=== PATIENT | female | born 1935 | race Caucasian/White ===

== ENCOUNTER 2018-02-07 08:14 | Inpatient (IN) | payer MEDICARE, OTHER ==
[~2018-02-07] VITALS: Ht 165.1 cm; Wt 83.8 kg
[2018-02-07 08:42] LABS: BASOPHILS % (AUTO) 0.2 % (0-1); EOSINOPHILS % (AUTO) 0.2 % (0-6); HEMATOCRIT 42.1 % (35.0-45.0); HEMOGLOBIN 14.5 g/dl (12.0-16.0); LYMPHOCYTES # (AUTO) 0.7 X10'3 (1.1-4.8); LYMPHOCYTES % (AUTO) 4.6 % (21-51); MEAN CORPUSCULAR HEMOGLOBIN 31.8 PG (27.0-31.0); MEAN CORPUSCULAR HGB CONC 34.5 % (33.0-36.5); MEAN CORPUSCULAR VOLUME 92.3 FL (78-98); MONOCYTES # (AUTO) 0.6 X10'3 (0-0.9); NEUTROPHILS # (AUTO) 14.6 X10'3 (1.8-7.7); PLATELET COUNT 246 X10'3 (140-440); RED BLOOD COUNT 4.56 X10'6 (4.20-5.60); RED CELL DISTRIBUTION WIDTH 14.5 % (11.5-14.5)
[2018-02-07 08:46] LABS: CLARITY,URINE CLOUDY (Clear); COLOR,URINE YELLOW (Yellow); GLUCOSE, URINE NEGATIVE (Neg); KETONES,URINE NEGATIVE (Neg); LEUKOCYTE ESTERASE ,URINE TRACE (Neg); NITRITES, URINE POSITIVE (Neg); OCCULT BLOOD,URINE TRACE-INTACT (Neg); PROTEIN,URINE NEGATIVE (Neg); UROBILINOGEN,URINE 0.2 E.U/dL (0.2-1.0)
[2018-02-07 08:51] LABS: UA COLLECTION TYPE CLN CATCH MIDSTREAM
[2018-02-07 08:54] LABS: BACTERIA,URINE 4+ /HPF (Neg); MUCUS STRANDS FEW /LPF (Neg); RBC,URINE 0-2 /HPF (0-2); SQUAMOUS EPITHELIAL CELL,UR MANY /LPF (FEW)
[2018-02-07] MEDS ORDERED: pantoprazole 40 MG vial IV ONE (08:55)
[2018-02-07] MEDS ORDERED: ondansetron/PF 4mg/2ml inj IV ONE (08:55)
[2018-02-07] MEDS ORDERED: normal saline 1000ML IV soln IVB ONE (08:55)
[2018-02-07 08:59] LABS: PROTHROMBIN TIME 10.7 SECONDS (9.0-12.0)
[2018-02-07 09:20] LABS: ALANINE AMINOTRANSFERASE 20 U/L (12-78); ALBUMIN 3.4 G/DL (3.4-5.0); ALBUMIN/GLOBULIN RATIO 0.9 (1.1-1.5); ALKALINE PHOSPHATASE 63 IU/L (46-116); ANION GAP 9 (8-16); ASPARTATE AMINO TRANSFERASE 16 U/L (10-37); BILIRUBIN,TOTAL 0.9 MG/DL (0.1-1.0); BLOOD UREA NITROGEN 26 MG/DL (7-18); BUN/CREATININE RATIO 26.5 (6.6-38.0); CHLORIDE 103 MMOL/L (99-107); CREATININE 0.98 MG/DL (0.40-0.90); GLUCOSE 150 MG/DL (70-104); LIPASE 60 U/L (73-393); POTASSIUM 3.9 MMOL/L (3.5-5.1); SODIUM 138 MMOL/L (135-145); TOTAL CARBON DIOXIDE 26.2 MMOL/L (24-32); eGFR 54 ML/MIN
[2018-02-07] MEDS ORDERED: iohexol 300mg/ml 100ml inj. ONE (09:25)
[2018-02-07 09:57] LABS: CLARITY,URINE SLIGHTLY CLOUDY (Clear); COLOR,URINE YELLOW (Yellow); GLUCOSE, URINE NEGATIVE (Neg); KETONES,URINE TRACE mg/dl (Neg); LEUKOCYTE ESTERASE ,URINE NEGATIVE (Neg); NITRITES, URINE POSITIVE (Neg); OCCULT BLOOD,URINE NEGATIVE (Neg); PROTEIN,URINE NEGATIVE (Neg); UROBILINOGEN,URINE 0.2 E.U/dL (0.2-1.0)
[2018-02-07 10:02] LABS: UA COLLECTION TYPE STRAIGHT CATH
[2018-02-07 10:03] LABS: BACTERIA,URINE 4+ /HPF (Neg); MUCUS STRANDS FEW /LPF (Neg); RBC,URINE 0-2 /HPF (0-2); SQUAMOUS EPITHELIAL CELL,UR FEW /LPF (FEW)
[2018-02-07] MEDS ORDERED: acetaminophen 325mg tablet PO ONE (11:40)
[2018-02-07] MEDS ORDERED: piperacillin/tazo 3.375gm/50ml 50 ML IV ONE (12:10)
[2018-02-07] MEDS ORDERED: NO HOME MEDS (12:30)
[2018-02-07] MEDS ORDERED: normal saline 1000ml 1,000 ML IV SCH (13:15)
[2018-02-07] MEDS ORDERED: ondansetron/PF 4mg/2ml inj IV PRN (13:15)
[2018-02-07] MEDS ORDERED: diphenhydrAMINE 50 mg/ml inj IV PRN (13:15)
[2018-02-07] MEDS ORDERED: HYDROmorphone inj. 0.5 MG/0.5 ML DISP.SYRIN IV PRN ×2 (13:15)
[2018-02-07] MEDS ORDERED: HYDROcodone/acetaminophen 5mg/325mg tablet PO PRN (13:15)
[2018-02-07] MEDS ORDERED: diphenhydrAMINE 25mg capsule PO PRN (13:15)
[2018-02-07] MEDS ORDERED: morphine 4 MG/ML inj SYRINge IV PRN ×2 (13:15)
[2018-02-07] MEDS ORDERED: acetaminophen 650mg rectal suppository RC PRN (13:15)
[2018-02-07] MEDS ORDERED: metoclopramide 5 mg/ml inj IV PRN (13:15)
[2018-02-07] MEDS ORDERED: magnesium hydroxide 30ml (MOM) UD suspension PO PRN (13:15)
[2018-02-07] MEDS ORDERED: acetaminophen 325mg tablet PO PRN ×2 (13:15)
[2018-02-07] MEDS ORDERED: mag hydrox/Alum hydrox/simeth 30ml oral suspension PO PRN (13:15)
[2018-02-07] MEDS ORDERED: CefTRIAXone/D5W-Rocephin 1gm 50 ML IV SCH (13:25)
[2018-02-07] MEDS: normal saline 1000ml 1,000 ML IV SCH (13:45)
[2018-02-07 14:00] LABS: INR 1.1 INR; PARTIAL THROMBOPLASTIN TIME 27 SECONDS (22-32); PROTHROMBIN TIME 11.4 SECONDS (9.0-12.0)
[2018-02-07 14:06] LABS: HEMOGLOBIN A1C 5.6 % (4.5-6.2)
[2018-02-07 14:38] LABS: MAGNESIUM 1.6 MG/DL (1.5-2.4)
[2018-02-07] MEDS: pantoprazole 40 MG vial IV SCH (15:35)
[2018-02-07] MEDS: cefTRIAXone 1g/NS 100ml IVPB 100 ML IV SCH (15:41)
[2018-02-07] MEDS: magnesium oxide 400mg tablet PO SCH (16:00)
[2018-02-07 16:07] VITALS: BP 130/66
[2018-02-07] MEDS: docusate sod 100mg capsule PO SCH (16:17)
[2018-02-07 19:30] VITALS: BP 139/64
[2018-02-07 20:03] LABS: OCCULT BLOOD STOOL POSITIVE (Neg)
[2018-02-07] MEDS ORDERED: temazepam 15mg capsule PO PRN (21:00)
[2018-02-08] VITALS: BP 148/66
[2018-02-08] MEDS: normal saline 1000ml 1,000 ML IV SCH ×3 (00:36→19:25)
[2018-02-08 05:43] LABS: BASOPHILS % (AUTO) 0.2 % (0-1); EOSINOPHILS # (AUTO) 0.1 X10'3 (0-0.9); EOSINOPHILS % (AUTO) 0.7 % (0-6); HEMATOCRIT 37.9 % (35.0-45.0); HEMOGLOBIN 12.8 g/dl (12.0-16.0); LYMPHOCYTES # (AUTO) 1.2 X10'3 (1.1-4.8); MEAN CORPUSCULAR HEMOGLOBIN 31.5 PG (27.0-31.0); MEAN CORPUSCULAR HGB CONC 33.7 % (33.0-36.5); MEAN CORPUSCULAR VOLUME 93.6 FL (78-98); MEAN PLATELET VOLUME 9.9 FL (7.4-10.4); MONOCYTES # (AUTO) 0.8 X10'3 (0-0.9); MONOCYTES % (AUTO) 6.3 % (2-12); NEUTROPHILS % (AUTO) 83.8 % (42-75); PLATELET COUNT 200 X10'3 (140-440); RED BLOOD COUNT 4.05 X10'6 (4.20-5.60); RED CELL DISTRIBUTION WIDTH 13.7 % (11.5-14.5); WHITE BLOOD COUNT 13.1 X10'3 (4.5-11.0)
[2018-02-08 06:09] LABS: ALANINE AMINOTRANSFERASE 19 U/L (12-78); ALBUMIN 2.7 G/DL (3.4-5.0); ALBUMIN/GLOBULIN RATIO 0.8 (1.1-1.5); ALKALINE PHOSPHATASE 49 IU/L (46-116); ANION GAP 7 (8-16); ASPARTATE AMINO TRANSFERASE 11 U/L (10-37); BILIRUBIN,TOTAL 0.5 MG/DL (0.1-1.0); BLOOD UREA NITROGEN 15 MG/DL (7-18); BUN/CREATININE RATIO 17.6 (6.6-38.0); CALCIUM 8.5 MG/DL (8.5-10.1); CHLORIDE 107 MMOL/L (99-107); CHOL/HDL RATIO 2.9 (0.00-4.99); CHOLESTEROL 159 MG/DL (0-200); CREATININE 0.85 MG/DL (0.40-0.90); GLUCOSE 103 MG/DL (70-104); HDL CHOLESTEROL 55 MG/DL (35-60); LDL CHOLESTEROL 90 MG/DL (50-100); POTASSIUM 3.7 MMOL/L (3.5-5.1); SODIUM 140 MMOL/L (135-145); TOTAL CARBON DIOXIDE 26.1 MMOL/L (24-32); TRIGLYCERIDES 78 MG/DL (20-135); eGFR 64 ML/MIN
[2018-02-08 07:37] VITALS: BP 153/77
[2018-02-08] MEDS: cefTRIAXone 1g/NS 100ml IVPB 100 ML IV SCH (07:42)
[2018-02-08] MEDS: magnesium oxide 400mg tablet PO SCH ×4 (07:43→23:12)
[2018-02-08] MEDS: pantoprazole 40 MG vial IV SCH (07:43)
[2018-02-08] MEDS: docusate sod 100mg capsule PO SCH ×2 (07:43→19:26)
[2018-02-08 07:44] LABS: C DIFF ANTIGEN NEGATIVE (NEGATIVE); C DIFF SPECIMEN=DIARRHEA? ACCEPTABLE; C DIFFICILE TOXINS A&B NEGATIVE (Neg)
[2018-02-08 11:22] VITALS: BP 145/69
[2018-02-08] MEDS ORDERED: CALC-97 PO (12:19)
[2018-02-08] MEDS ORDERED: ASCO500C17 PO (12:19)
[2018-02-08] MEDS ORDERED: MELA3TAB PO (12:19)
[2018-02-08] MEDS ORDERED: PSYL0.4C2 PO (12:19)
[2018-02-08] MEDS ORDERED: FOLI0.4T2 PO (12:19)
[2018-02-08] MEDS ORDERED: CHOL10002 PO (12:19)
[2018-02-08] MEDS ORDERED: MAGN500C16 PO (12:19)
[2018-02-08] MEDS ORDERED: GLUC-150 PO (12:19)
[2018-02-08] MEDS ORDERED: PEG 3350/Na sulf,bicarb,Cl/KCl oral sol 4 liter bottle PO ONE (12:35)
[2018-02-08] MEDS ORDERED: tumeric PO (18:07)
[2018-02-08 20:00] VITALS: BP 109/76
[2018-02-08] MEDS: HYDROcodone/acetaminophen 10/325mg tab PO PRN (21:23)
[2018-02-09] VITALS (12 sets, daily range): BP systolic 111–174; BP diastolic 54–90
[2018-02-09] MEDS: normal saline 1000ml 1,000 ML IV SCH (04:45)
[2018-02-09 06:35] LABS: BASOPHILS % (AUTO) 0.1 % (0-1); EOSINOPHILS % (AUTO) 0.3 % (0-6); HEMATOCRIT 37.2 % (35.0-45.0); HEMOGLOBIN 12.8 g/dl (12.0-16.0); LYMPHOCYTES # (AUTO) 0.9 X10'3 (1.1-4.8); LYMPHOCYTES % (AUTO) 6.1 % (21-51); MEAN CORPUSCULAR HEMOGLOBIN 31.7 PG (27.0-31.0); MEAN CORPUSCULAR HGB CONC 34.4 % (33.0-36.5); MEAN CORPUSCULAR VOLUME 92.3 FL (78-98); MEAN PLATELET VOLUME 9.9 FL (7.4-10.4); MONOCYTES # (AUTO) 0.8 X10'3 (0-0.9); MONOCYTES % (AUTO) 5.6 % (2-12); NEUTROPHILS # (AUTO) 12.9 X10'3 (1.8-7.7); NEUTROPHILS % (AUTO) 87.9 % (42-75); PLATELET COUNT 172 X10'3 (140-440); RED BLOOD COUNT 4.03 X10'6 (4.20-5.60); RED CELL DISTRIBUTION WIDTH 14.2 % (11.5-14.5); WHITE BLOOD COUNT 14.6 X10'3 (4.5-11.0)
[2018-02-09 06:57] LABS: ALBUMIN 2.6 G/DL (3.4-5.0); ALBUMIN/GLOBULIN RATIO 0.7 (1.1-1.5); ANION GAP 8 (8-16); BILIRUBIN,TOTAL 0.4 MG/DL (0.1-1.0); BLOOD UREA NITROGEN 9 MG/DL (7-18); BUN/CREATININE RATIO 12.2 (6.6-38.0); CALCIUM 8.6 MG/DL (8.5-10.1); CHLORIDE 105 MMOL/L (99-107); CREATININE 0.74 MG/DL (0.40-0.90); GLUCOSE 123 MG/DL (70-104); POTASSIUM 3.6 MMOL/L (3.5-5.1); SODIUM 139 MMOL/L (135-145); TOTAL PROTEIN 6.2 G/DL (6.4-8.2); eGFR 75 ML/MIN
[2018-02-09 06:58] LABS: ALANINE AMINOTRANSFERASE 18 U/L (12-78); ALKALINE PHOSPHATASE 46 IU/L (46-116); ASPARTATE AMINO TRANSFERASE 15 U/L (10-37)
[2018-02-09] MEDS: magnesium oxide 400mg tablet PO SCH (08:00)
[2018-02-09] MEDS ORDERED: cefTRIAXone 1g/NS 100ml IVPB 100 ML IV SCH (08:00)
[2018-02-09] MEDS: docusate sod 100mg capsule PO SCH (08:00)
[2018-02-09] MEDS: pantoprazole 40 MG vial IV SCH (08:21)
[2018-02-09] MEDS ORDERED: normal saline 1000ml 1,000 ML IV SCH (08:24)
[2018-02-09] MEDS ORDERED: simethicone 40mg/0.6ml oral drops 30ml MC ONE (08:25)
[2018-02-09] MEDS ORDERED: fentaNYL/PF 50MCG/1 ML 2ML syringe IV PRN (08:25)
[2018-02-09] MEDS ORDERED: MIDAZolam 5mg/5ml vial IV PRN (08:25)
[2018-02-09] MEDS ORDERED: fentaNYL/PF 50MCG/1 ML 2ML syringe ONE (08:38)
[2018-02-09] MEDS ORDERED: MIDAZolam 5mg/5ml vial ONE (08:38)
[2018-02-09] MEDS: HYDROcodone/acetaminophen 10/325mg tab PO PRN (12:37)
== END 2018-02-09 15:27 | disposition home or self-care (01) | DRG 682 ==
LOC: ER 08:15 → ED HOLD 13:15 → EDBEDREQ 14:22 → SUR 3N 15:25
PROVIDERS: ADMIT Family Medicine; ATTEND Family Medicine
PROC: 0DBE8ZX Excision of Large Intestine, Via Natural or Artificial Opening Endoscopic, Diagnostic (ICD-10-PCS; principal; 2018-02-09)
DX: N17.9 Acute kidney failure, unspecified (principal); K57.31 Diverticulosis of large intestine without perforation or abscess with bleeding; N39.0 Urinary tract infection, site not specified; K80.20 Calculus of gallbladder without cholecystitis without obstruction; K52.9 Noninfective gastroenteritis and colitis, unspecified; E86.0 Dehydration; I10 Essential (primary) hypertension; K76.0 Fatty (change of) liver, not elsewhere classified; Z90.710 Acquired absence of both cervix and uterus
CPT/HCPCS: 36415; 45380; 74177; 80053; 80061; 81001; 82272; 83036; 83605; 83690; 83735; 83880; 84100; 84145; 85025; 85610; 85651; 85730; 86140; 86885; 86900; 86901; 87040; 87045; 87046; 87070; 87077; 87088; 87186; 87324; 87449; 89055; 96361; 96365; 96375; 99285; A4620; C9113; G0500; J0696; J2250; J2405; J2543; J3010; J7030; Q9967

== ENCOUNTER 2019-06-23 15:00 | Emergency (ER) | payer MEDICARE, OTHER ==
[~2019-06-23] VITALS: Ht 170.2 cm; Wt 91.8 kg
[~2019-06-23 15:00] MED LIST: ASCO500C17 PO; CALC-97 PO; CHOL10002 PO; FOLI0.4T2 PO; GLUC-150 PO; MAGN500C16 PO; MELA3TAB64 PO; PSYL0.4C2 PO
[2019-06-23 15:22] VITALS: BP 150/77
[2019-06-23] MEDS ORDERED: CLOT15CR10 TP (16:21)
[2019-06-23] MEDS ORDERED: FAMC500T18 PO (16:21)
== END 2019-06-23 16:43 | disposition home or self-care (01) ==
LOC: ER 15:00
DX: B35.4 Tinea corporis (principal); M19.90 Unspecified osteoarthritis, unspecified site; Z90.710 Acquired absence of both cervix and uterus; Z79.899 Other long term (current) drug therapy
CPT/HCPCS: 99283